=== PATIENT | male | born 2000 | race Caucasian/White ===

== ENCOUNTER 2020-10-20 18:36 | Emergency (ER) | payer OTHER, SELFPAY ==
[2020-10-20 19:05] VITALS: BP 115/70; PULSE 94; RESP 17; TEMP 36.6; O2SAT 100
--- NOTE | 2020-10-20 19:21 | ED.SKABFB ---
HPI - Skin/Abscess/Foreign Bdy General Chief complaint: Skin/Abscess/Foreign Body Stated complaint: Rash Time Seen by Provider: 10/20/20 19:21 Source: patient Mode of arrival: ambulatory Limitations: no limitations History of Present Illness HPI narrative: Marin Silver is a 19-year-old male who comes to [facility] with a rash on his legs and buttocks from being out in the [place] that occurred about a week ago. It is gradually spread even though he has been using hydrocortisone cream, Benadryl, Claritin. He is concerned particularly because there were ticks that he pulled out although none of the rash is really circular but it does seem to be angry appearing. No fever no nausea vomiting or diarrhea Related Data Home Medications Medication Instructions Recorded Confirmed loratadine [Claritin] 10 mg PO PRN PRN 10/20/20 10/20/20 Allergies Allergy/AdvReac Type Severity Reaction Status Date / Time amoxicillin Allergy Unknown Hives Verified 10/20/20 19:06 Penicillins Allergy Unknown Hives Verified 10/20/20 19:04 Review of Systems Review of Systems: CONSTITUTIONAL: Denies fever, chills, sweats. EYES: Denies visual changes, redness, discharge. ENT: Denies rhinorrhea, congestion, sore throat, otalgia. CARDIOVASCULAR: Denies chest pain, palpitations, edema. RESPIRATORY: Denies dyspnea, wheezing, cough GASTROINTESTINAL: Denies abdominal pain, nausea, vomiting, diarrhea. GENITOURINARY: Denies dysuria, hematuria, abnormal discharge SKIN: Has rash on bilateral legs thighs and buttocks and lower back NEUROLOGIC: Denies numbness, or focal weakness. PSYCHIATRIC: Denies anxiety or depression. [facility] Past Medical History Medical History No acute medical problems Family History Family History (Updated 10/20/20 @ 19:30 by Evy Gandara CNP) Father Diabetes mellitus Other Family history of arthritis Social History Social History Smoking status: Never smoker Comments At time of signature, I agree with nursing past medical, surgical, social and family history. There is no relevant family history pertinent to the presenting complaint. Exam Narrative: GENERAL: This is a well-nourished, well-developed patient, in mild distress. HEAD: normocephalic, atraumatic. EYES: Sclera clear/white. Vision is grossly intact. EARS: External ears normal. Hearing grossly intact. NOSE: External nose normal without nasal discharge, nares without redness, no rhinorrhea. THROAT: Mucous membranes moist, NECK: Neck supple, non-tender CARDIOVASCULAR: Regular rate and rhythm without murmurs, gallops, or rubs. RESPIRATORY: Clear to auscultation. Breath sounds equal bilaterally. No wheezes, rales, or rhonchi. GASTROINTESTINAL: Abdomen soft, SKIN: warm, intact with red angry appearing circular rash with mild induration on upper thighs buttocks and lower back NEURO: awake, alert, and oriented to person, place and time. There were no obvious focal neurologic abnormalities. Steady gait EXTREMITIES: Normal range of motion. BACK: Nontender without deformity Course Course Emergency Course: Patient was in the [place] a week ago and at a lot of ticks on his legs which he pulled out came out whole he has developed a rash on his legs buttocks and lower back that is very pruritic and angry appearing Prednisone 60 mg given on site Started on doxycycline and Medrol Dosepak Vital Signs Vital signs: Vital Signs Temperature 97.8 F 10/20/20 19:05 Pulse Rate 94 10/20/20 19:05 Respiratory Rate 17 10/20/20 19:05 Blood Pressure 115/70 10/20/20 19:05 Pulse Oximetry 100 10/20/20 19:05 Temperature 97.8 F 10/20/20 19:05 Pulse Rate 94 10/20/20 19:05 Respiratory Rate 17 10/20/20 19:05 Blood Pressure 115/70 10/20/20 19:05 Pulse Oximetry 100 10/20/20 19:05 MDM - Skin/Abscess/Foreign Bdy Differential Diagnosis Differ
[2020-10-20] MEDS: predniSONE 20 MG TABLET 60 MG PO (19:39)
== END 2020-10-20 19:42 | disposition home or self-care (01) ==
PROVIDERS: Emergency Provider Nurse Practitioner
DX: S30.860A Insect bite (nonvenomous) of lower back and pelvis, initial encounter (principal); W57.XXXA Bitten or stung by nonvenomous insect and other nonvenomous arthropods, initial encounter
CPT/HCPCS: 99213; G0463; J7512

== ENCOUNTER 2024-05-07 17:40 | Emergency (ER) | payer OTHER, SELFPAY ==
--- NOTE | ~2024-05-07 | XR_ITS ---
HISTORY: felt pain when bending down, now red, swollen/pain 2x days COMPARISON: 10/20/2023 TECHNIQUE: 3 views of the right knee were performed on the same FINDINGS: No acute or subacute fracture. Large anterior contusion/hematoma at the level of the patella. Medial tibiofemoral joint space narrowing is identified. Large suprapatellar joint effusion is identified. The infrapatellar joint space is clear. IMPRESSION: Large anterior soft tissue contusion/hematoma at the level of the patella with a large s uprapatellar joint effusion. No acute fracture. Reviewed, dictated and finalized at location A. IMPRESSION: Large anterior soft tissue contusion/hematoma at the level of the patella with a large suprapatellar joint effusion. No acute fracture.
--- OUTSIDE RECORDS SUMMARY | 2024-05-07 17:42 | XMS_ITS | Encounter Summary ---
Author Organization [facility] Address [address] [place] [address] Care Team Providers Care Putty Patcher Name Role Phone Referral, Self Primary Care Provider Aamir Crabtree DO Primary Care Provider [phone] Reason for Referral * Imaging (Routine) - Closed Specialty Diagnoses / Procedures Referred By Day garcia Referred To Contact Diagnoses Instability of left shoulder joint Procedures MRI ARTHRO SHOULDER LT Arline Pettit DO [address] [place] [address] Phone: tel: fax: [place] [address] Phone: tel: Referral ID Status Reason Start Date Expiration Date Visits Re quested Visits Authorized [id number] Closed 02/28/2018 08/27/2018 1 1 OROLOGIST LIAISON * Imaging (Routine) - Closed Specialty Diagnoses / Procedures Referred By Day garcia Referred To Contact Diagnoses Instability of left shoulder joint Procedures IR ARTHROGRAM SHOULDER LT Arline Pettit DO [address] [place] [address] Phone: tel: fax: [place] [address] Phone: tel: Referral ID Status Reason Start Date Expiration Date Visits Re quested Visits Authorized [id number] Closed 02/28/2018 08/27/2018 1 1 OROLOGIST LIAISON * Imaging (Routine) - Closed Specialty Diagnoses / Procedures Referred By Veronicaac t Referred To Contact Diagnoses Instability of right shoulder joint Procedures MRI ARTHRO SHOULDER RT Arline Pettit DO [address] [place] [address] Phone: tel: fax: [place] [address] Phone: tel: Referral ID Status Reason Start Date Expiration Date Visits Re quested Visits Authorized [id number] Closed 02/28/2018 08/27/2018 1 1 OROLOGIST LIAISON * Imaging (Routine) - Closed Specialty Diagnoses / Procedures Referred By Day t Referred To Contact Diagnoses Instability of right shoulder joint Procedures IR ARTHROGRAM SHOULDER RT Arline Pettit DO [address] [place] [address] Phone: tel: fax: [place] [address] Phone: tel: Referral ID Status Reason Start Date Expiration Date Visits Re quested Visits Authorized [id number] Closed 02/28/2018 08/27/2018 1 1 OROLOGIST LIAISON Encounter Details Date Type Department Care Team (Late st Contact Info) Description 03/06/2018 Community Orders [facility] EPICCARE LINK Arline Pettit DO [address] [facility] [address] [place] [address] Social History Tobacco Use Types Packs/Day Years Used Date Smoking Tobacco: Never Smokeless Tobacco: Never Sex and Gender Information Value Date Recorded Sex Assigned at Not on file Legal Sex Male 8:33 PM CDT Gender Identity Not on file Sexual Orientation Not on file documented as of this encounter Plan of Treatment Upcoming Encounters Date Type Department Care Team (Late st Contact Info) Description 08/04/2024 2:20 PM CDT Office Visit [facility] Multispecialty Care - [address] [place] [address] [address] [place] [address] Bebe Garcia MD [address] [place] [address] [address] [place] [address] documented as of this encounter Results * MRI ARTHRO SHOULDER RT (03/26/2018 1:34 PM METEOROLOGIST LIAISON) Anatomical Region Laterality Modality Shoulder Magnetic Resonan ce 03/26/2018 4:14 PM METEOROLOGIST LIAISON Impressions 03/27/2018 3:13 PM METEOROLOGIST LIAISON =====IMPRESSION:===== 1. No right shoulder labral tear identified. 2. Supraspinatus and infraspinatus [id number] tendinopathy; no convincing tear identified. 3. Unremarkable imaging appearance of the acromio clavicular joint without findings for acute or chronic injury or arthritis. 4. Please see report body for detail. Narrative 03/27/2018 3:13 PM METEOROLOGIST LIAISON EXAMINATION: MRI right shoulder arthrogram EXAM DATE/TIME: 03/26/2018 11:02 AM REASON FOR EXAM: Bilateral shoulder pain. History of right shoulder dislocation from sports injury and left shoulder separation while lifting COMPARISON: None TECHNIQUE: MR arthrogram of the right shoulder was performed. Multiplanar multisequence images of the right shoulder were acquired following fluoroscopic guided intra-articular administration of diluted gadolinium contrast. Triplanar T1-weighted fat-sat imaging as well as Aber view was obtained. FINDINGS: There is no convincing labral tear identified on this study. There is no partial or full-thickness rotator cuff tendon tear seen. There is mild to moderate supraspinatus and infraspinatus tendinopathy. Teres minor and subscapularis are unremarkable. There is no muscle edema or atrophy. The long head of the biceps tendon is normal in signal morphology without findings of tendinopathy or tenosynovitis. Tendon is located normally in the bicipital groove. No muscle edema or atrophy seen. There is a type I acromion. No lateral downsloping seen. Grossly unremarkable imaging appearance of the chronic clavicular joint. There is no joint associated edema or evidence of separation injury or degenerative change. There is a minimal if any mass effect from the distal clavicle on the supraspinatus myotendinous junction. There is no subacromial bursal effusion/bursitis. There are no Hill-Sachs fracture or bony Bankart lesion identified. There are tiny subchondral cysts posterior superior humeral head that are nonspecific. No concerning marrow signal changes identified. There is anatomic alignment. No instability identified. No significant cartilage defect/osteochondral lesion. Procedure Note Porsche Edmondson MD - 03/27/2018 EXAMINATION: MRI right shoulder arthrogram EXAM DATE/TIME: 03/26/2018 11:02 AM REASON FOR EXAM: Bilateral shoulder pain. History of right shoulder dislocation from sports injury and left shoulder separation whilelifting COMPARISON: None TECHNIQUE: MR arthrogram of the right shoulder was performed.Multiplanar multisequence images of the right shoulder were acquired following fluoroscopic guided intra-articular administration of diluted gadolinium contrast. Triplanar T1-weighted fat-sat imaging as well as Aber view was obtained. FINDINGS: There is no convincing labral tear identified on this study. There is no partial or full-thickness rotator cuff tendon tear seen.There is mild to moderate supraspinatus and infraspinatus tendinopathy. Teres minor and subscapularis are unremarkable. There is no muscle edema or atrophy. The long head of the biceps tendon is normal in signal morphologywithout findings of tendinopathy or tenosynovitis. Tendon is located normally in the bicipital groove. No muscle edema or atrophy seen. There is a type I acromion. No lateral downsloping seen. Grossly unremarkable imaging appearance of the chronic clavicular joint. There is no joint associated edema or evidence of separation injury or degenerative change. There is a minimal if any mass effect from the distal clavicle on the supraspinatus myotendinousjunction. There is no subacromial bursal effusion/bursitis. There are no Hill-Sachs fracture or bony Bankart lesion identified.There are tiny subchondral cysts posterior superior humeral head that are nonspecific. No concerning marrow signal changes identified. There is anatomic alignment. No instability identified. No significant cartilage defect/osteochondral lesion. =====IMPRESSION:===== 1. No right shoulder labral tear identified. 2. Supraspinatus and infraspinatus [id number] tendinopathy; no convincing tear identified. 3. Unremarkable imaging appearance of the acromio clavicular jointwithout findings for acute or chronic injury or arthritis. 4. Please see report body for detail. Arline Pettit DO MRI Final Result * MRI ARTHRO SHOULDER LT (03/26/2018 12:41 PM METEOROLOGIST LIAISON) Anatomical Region Laterality Modality Shoulder Magnetic Resonan ce 03/26/2018 4:14 PM METEOROLOGIST LIAISON Impressions 03/27/2018 10:34 AM METEOROLOGIST LIAISON =====IMPRESSION:===== 1. Left shoulder SLAP tear, thought to be from the posterior 11:00 though the anterior 8:00 position; there may be additional posterior labrum subtle marginal fraying. 2. Supraspinatus, infraspinatus and subscapularis mild tendinopathy without indication of the tear. 3. Mild localized subacromial mass effect on the supraspinatus myotendinous junction; no bursal effusion/bursitis. 4. Please see report body for detail. Narrative 03/27/2018 10:34 AM METEOROLOGIST LIAISON EXAMINATION: MRI left shoulder arthrogram EXAM DATE/TIME: 03/26/2018 11:03 AM REASON FOR EXAM: Bilateral shoulder pain. History of left shoulder dislocation from sports injury; left shoulder separation from lifting injury. COMPARISON: None TECHNIQUE: MR arthrogram of the left shoulder was performed. Multiplanar multisequence images through the shoulder were acquired following fluoroscopic guided intra-articular administration of diluted gadolinium contrast. Triplanar T1-weighted fat-sat imaging as well as Aber view was obtained. FINDINGS: There is a SLAP labral tear extending probably from the posterior 11:00 anteriorly to the anterior inferior 4:00 position. There may be additional posterior labral subtle marginal fraying. No convincing tear into the long of the biceps tendon identified. There is no Hill-Sachs fracture or bony pancreatic lesion. There is no partial or full-thickness rotator cuff tendon tear. There is a rotator cuff tendinopathy involving the supraspinatus, infraspinatus and subscapularis. Minimal periligamentous edema present without a subacromial bursal effusion/bursitis. There is a type I acromion. No obvious lateral downsloping. No significant acromioclavicular arthritic change. There is slight mass effect on the supraspinatus myotendinous junction from the distal clavicle. There is no muscle edema or atrophy. No findings for quadrilateral space syndrome. The articular cartilage is well-maintained. No abnormal marrow signal changes seen. Normal glenohumeral alignment. No evidence of instability on this study. Procedure Note Porsche Edmondson MD - 03/27/2018 EXAMINATION: MRI left shoulder arthrogram EXAM DATE/TIME: 03/26/2018 11:03 AM REASON FOR EXAM: Bilateral shoulder pain. History of left shoulder dislocation from sports injury; left shoulder separation from lifting injury. COMPARISON: None TECHNIQUE: MR arthrogram of the left shoulder was performed. Multiplanar multisequence images through the shoulder were acquired following fluoroscopic guided intra-articular administration of diluted gadolinium contrast. Triplanar T1-weighted fat-sat imaging as well as Aber view was obtained. FINDINGS: There is a SLAP labral tear extending probably from theposterior 11:00 anteriorly to the anterior inferior 4:00 position. There may be additional posterior labral subtle marginal fraying. No convincing tear into the long of the biceps tendon identified. There is no Hill-Sachs fracture or bony pancreatic lesion. There is no partial or full-thickness rotator cuff tendon tear. There malachi rotator cuff tendinopathy involving the supraspinatus, infraspinatus and subscapularis. Minimal periligamentous edema present without asubacromial bursal effusion/bursitis. There is a type I acromion. No obvious lateral downsloping. Nosignificant acromioclavicular arthritic change. There is slight mass effect on the supraspinatus myotendinous junction from the distal clavicle. There is no muscle edema or atrophy. No findings for quadrilateral space syndrome. The articular cartilage is well-maintained. No abnormal marrow signal changes seen. Normal glenohumeral alignment. No evidence of instability on this study. =====IMPRESSION:===== 1. Left shoulder SLAP tear, thought to be from the posterior 11:00though the anterior 8:00 position; there may be additional posterior labrumsubtle marginal fraying. 2. Supraspinatus, infraspinatus and subscapularis mild tendinopathywithout indication of the tear. 3. Mild localized subacromial mass effect on the supraspinatusmyotendinous junction; no bursal effusion/bursitis. 4. Please see report body for detail. Arline Pettit DO MRI Final Result * IR ARTHROGRAM SHOULDER RT (03/26/2018 10:58 AM METEOROLOGIST LIAISON) Anatomical Region Laterality Modality Shoulder Interventional R adiology, Radiographic Imaging 03/26/2018 4:06 PM METEOROLOGIST LIAISON Impressions 03/26/2018 4:12 PM METEOROLOGIST LIAISON =====IMPRESSION:===== 1. Technically successful right and left fluoroscopic shoulder arthrogram is. 2. Bilateral MR shoulder arthrograms to follow. Narrative 03/26/2018 4:12 PM METEOROLOGIST LIAISON Examination: Fluoroscopic arthrogram injection, right shoulder; fluoroscopic arthrogram injection, left shoulder [id number] Exam date/time: 03/26/2018 10:20 AM Reason For Exam: Bilateral shoulder pain and limited range of motion. History of prior right shoulder dislocation; left shoulder separation injury from lifting. Comparison: None Technique: Informed verbal and consent was obtained. Procedure was discussed with the patient including applicable risks, benefits and alternatives. The patient expressed understanding and wished to proceed. Bilateral shoulder arthrograms performed. The left shoulder was targeted initially followed by the right shoulder. A timeout was performed. Patient was placed supine on fluoroscopy table with the hand in supination. The anterior shoulder joint was localized with fluoroscopy and the skin entry site marked, prepped and draped in usual sterile fashion. 1% lidocaine was used for local anesthesia. A 22-gauge spinal needle was advanced under fluoroscopy guidance into the shoulder joint. Articular needle position was confirmed with contrast injection. 12 mL of a 20 mL mixture of 10 mL saline, 5 mL lidocaine, 5 mL iodinated contrast and 0.2 mL gadolinium was then injected into the joint. Needle was removed. This is performed initially in the left shoulder followed by the right shoulder. The needle was then removed. The patient tolerated the procedure well with no immediate complication. Findings: Contrast is seen to diffuse through both shoulder joints adequately. Total fluoroscopy time right shoulder 0.3 minutes with one image saved Total fluoroscopy time left shoulder 0.3 minutes with one image saved. Procedure Note Porsche Edmondson MD - 03/26/2018 Examination: Fluoroscopic arthrogram injection, right shoulder; fluoroscopic arthrogram injection, left shoulder [id number] Exam date/time: 03/26/2018 10:20 AM Reason For Exam: Bilateral shoulder pain and limited range of motion. History of prior right shoulder dislocation; left shoulder separation injury from lifting. Comparison: None Technique: Informed verbal and consent was obtained. Procedure was discussed with the patient including applicable risks, benefits and alternatives. The patient expressed understanding and wished to proceed. Bilateral shoulder arthrograms performed. The left shoulder was targeted initially followed by the right shoulder. A timeout was performed. Patient was placed supine on fluoroscopy table with the hand in supination. The anterior shoulder joint was localizedwith fluoroscopy and the skin entry site marked, prepped and draped in usual sterile fashion. 1% lidocaine was used for local anesthesia. A 22-gauge spinal needle was advanced under fluoroscopy guidance into the shoulder joint. Articular needle position was confirmed with contrast injection.12 mL of a 20 mL mixture of 10 mL saline, 5 mL lidocaine, 5 mL iodinated contrast and 0.2 mL gadolinium was then injected into the joint. Needlewas removed. This is performed initially in the left shoulder followed bythe right shoulder. The needle was then removed. The patient tolerated the procedure wellwith no immediate complication. Findings: Contrast is seen to diffuse through both shoulder joints adequately. Total fluoroscopy time right shoulder 0.3 minutes with one image saved Total fluoroscopy time left shoulder 0.3 minutes with one image saved. =====IMPRESSION:===== 1. Technically successful right and left fluoroscopic shoulderarthrogram is. 2. Bilateral MR shoulder arthrograms to follow. Arline Pettit DO INTERVENTIONAL RADIOLOGY Fin al Result * IR ARTHROGRAM SHOULDER LT (03/26/2018 10:54 AM METEOROLOGIST LIAISON) Anatomical Region Laterality Modality Shoulder Interventional R adiology, Radiographic Imaging 03/26/2018 4:06 PM METEOROLOGIST LIAISON Impressions 03/26/2018 4:12 PM METEOROLOGIST LIAISON =====IMPRESSION:===== 1. Technically successful right and left fluoroscopic shoulder arthrogram is. 2. Bilateral MR shoulder arthrograms to follow. Narrative 03/26/2018 4:12 PM METEOROLOGIST LIAISON Examination: Fluoroscopic arthrogram injection, right shoulder; fluoroscopic arthrogram injection, left shoulder [id number] Exam date/time: 03/26/2018 10:20 AM Reason For Exam: Bilateral shoulder pain and limited range of motion. History of prior right shoulder dislocation; left shoulder separation injury from lifting. Comparison: None Technique: Informed verbal and consent was obtained. Procedure was discussed with the patient including applicable risks, benefits and alternatives. The patient expressed understanding and wished to proceed. Bilateral shoulder arthrograms performed. The left shoulder was targeted initially followed by the right shoulder. A timeout was performed. Patient was placed supine on fluoroscopy table with the hand in supination. The anterior shoulder joint was localized with fluoroscopy and the skin entry site marked, prepped and draped in usual sterile fashion. 1% lidocaine was used for local anesthesia. A 22-gauge spinal needle was advanced under fluoroscopy guidance into the shoulder joint. Articular needle position was confirmed with contrast injection. 12 mL of a 20 mL mixture of 10 mL saline, 5 mL lidocaine, 5 mL iodinated contrast and 0.2 mL gadolinium was then injected into the joint. Needle was removed. This is performed initially in the left shoulder followed by the right shoulder. The needle was then removed. The patient tolerated the procedure well with no immediate complication. Findings: Contrast is seen to diffuse through both shoulder joints adequately. Total fluoroscopy time right shoulder 0.3 minutes with one image saved Total fluoroscopy time left shoulder 0.3 minutes with one image saved. Procedure Note Porsche Edmondson MD - 03/26/2018 Examination: Fluoroscopic arthrogram injection, right shoulder; fluoroscopic arthrogram injection, left shoulder [id number] Exam date/time: 03/26/2018 10:20 AM Reason For Exam: Bilateral shoulder pain and limited range of motion. History of prior right shoulder dislocation; left shoulder separation injury from lifting. Comparison: None Technique: Informed verbal and consent was obtained. Procedure was discussed with the patient including applicable risks, benefits and alternatives. The patient expressed understanding and wished to proceed. Bilateral shoulder arthrograms performed. The left shoulder was targeted initially followed by the right shoulder. A timeout was performed. Patient was placed supine on fluoroscopy table with the hand in supination. The anterior shoulder joint was localizedwith fluoroscopy and the skin entry site marked, prepped and draped in usual sterile fashion. 1% lidocaine was used for local anesthesia. A 22-gauge spinal needle was advanced under fluoroscopy guidance into the shoulder joint. Articular needle position was confirmed with contrast injection.12 mL of a 20 mL mixture of 10 mL saline, 5 mL lidocaine, 5 mL iodinated contrast and 0.2 mL gadolinium was then injected into the joint. Needlewas removed. This is performed initially in the left shoulder followed bythe right shoulder. The needle was then removed. The patient tolerated the procedure wellwith no immediate complication. Findings: Contrast is seen to diffuse through both shoulder joints adequately. Total fluoroscopy time right shoulder 0.3 minutes with one image saved Total fluoroscopy time left shoulder 0.3 minutes with one image saved. =====IMPRESSION:===== 1. Technically successful right and left fluoroscopic shoulderarthrogram is. 2. Bilateral MR shoulder arthrograms to follow. Arline Pettit DO INTERVENTIONAL RADIOLOGY Fin al Result documented in this encounter Visit Diagnoses Diagnosis Instability of right shoulder joint- Primary Other joint derangement, not elsewhere classified, shoulder region Instability of left shoulder joint Other joint derangement, not elsewhere classified, shoulder region Instability of left shoulder joint Other joint derangement, not elsewhere classified, shoulder region Instability of right shoulder joint Other joint derangement, not elsewhere classified, shoulder region documented in this encounter Care Teams Putty Patcher Relationship Specialty Start Date End Date Referral, Self PCP - General UNKNOWN PHYSICIAN SPECIALTY 03/05/18 Aamir Rajput DO [address] [address] PCP - General FAMILY PRACTICE 04/09/18 documented as of this encounter
--- OUTSIDE RECORDS SUMMARY | 2024-05-07 17:42 | XMS_ITS | Clinical Summary ---
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 shoulder, subsequent encounter 04/09/2018 Shoulder instability, left 04/09/2018 Heart murmur 03/05/2018 Instability of shoulder joint, right 03/05/2018 Social History Tobacco Use Types Packs/Day Years Used Date Smoking Tobacco: Never Smokeless Tobacco: Never Sex and Gender Information Value Date Recorded Sex Assigned at Not on file Legal Sex Male 8:33 PM CDT Gender Identity Not on file Sexual Orientation Not on file Last Filed Vital Signs Vital Sign Reading Time Taken Comments Blood Pressure 111/72 06/04/2018 4:15 PM CDT Pulse 77 06/04/2018 4:15 PM CDT Temperature - - Respiratory Rate - - Oxygen Saturation - - Inhaled Oxygen Concentration - - Weight 74.4 kg (164 lb) 06/04/2018 4:15 PM CDT Height 172.7 cm (5' 8 ) 06/04/2018 4:15 PM CDT Body Mass Index 24.94 06/04/2018 4:15 PM CDT Plan of Treatment Upcoming Encounters Date Type Department Care Team (Late st Contact Info) Description 08/04/2024 2:20 PM CDT Office Visit [facility] Multispecialty Care - [address] [place] [address] Bebe Garcia MD [address] [facility] [address] [place] [address] Health Maintenance Due Date Last Done Comments Annual Physical 11/10/2002 HPV Vaccines (1 - Male 3-dos e series) 11/10/2014 Hepatitis C 11/10/2017 DTaP, Tdap and Td Vaccines ( 1 - Tdap) 11/10/2018 Hepatitis B Vaccines (1 of 3 - 19+ 3-dose series) 11/10/2018 COVID-19 Vaccine (1 - 2023-2 5 season) 2023 Meningococcal B Vaccine Aged Out No l onger eligible based on patient's age to complete this topic Meningococcal Vaccine Aged Out No jacquie philip eligible based on patient's age to complete this topic Pneumococcal Vaccine: Pediat rics (0 to 5 Years) and At-Risk Patients (6 to 64 Years) Aged Out No longer eligible b ased on patient's age to complete this topic RSV Immunizations Under 20 Months Aged Out No longer eligible based on patient's age to complete this topic Insurance Care Teams Conditioner Tumbler Operator Relationship Specialty Start Date End Date Aamir Rajput DO [address] [phone] (Work) PCP - General FAMILY PRACTICE 04/09/18
[2024-05-07 17:54] VITALS: BP 127/64; PULSE 82; RESP 16; TEMP 36.6; O2SAT 100
--- NOTE | 2024-05-07 17:57 | ED_ITS ---
HPI - Extremity Injury (Lower) General Chief Complaint: Extremity Injury, Lower Stated Complaint: rt knee pain Time Seen by Provider: 05/07/24 17:57 Source: patient Mode of arrival: ambulatory Limitations: no limitations History of Present Illness HPI Narrative: 23-year-old male presents today with complaint of pain, swelling and redness to right knee. Patient states 2 days ago he bent down at work and felt pain to right knee. unsure if when bending down onto the ground he landed on something or the bending cause injury to knee. Noticed swelling to knee last night. Today increase in swelling with pain and redness. Walking with Limp due to pain. all systems reviewed and negative except as noted above. Related Data Home Medications ?Medication ?Instructions ?Recorded ?Confirmed ?Last Taken ?Type loratadine 10 mg tablet (Claritin) 10 mg PO PRN PRN Allergy Symptoms 10/20/20 10/20/20 Unknown History Allergies Allergy/AdvReac Type Severity Reaction Status Date / Time amoxicillin Allergy Unknown Hives Verified 05/07/24 17:57 Penicillins Allergy Unknown Hives Verified 05/07/24 17:57 Review of Systems Review of Systems: CONSTITUTIONAL: Denies fever, chills, or sweats. EYES: Denies visual changes, redness, or discharge. ENT: Denies rhinorrhea, congestion, sore throat, or otalgia. CARDIOVASCULAR: Denies chest pain, palpitations, or edema. RESPIRATORY: Denies cough or dyspnea. GASTROINTESTINAL: Denies abdominal pain, nausea, vomiting, or diarrhea. GENITOURINARY: Denies dysuria or hematuria. SKIN: Denies rash or itching. MUSCULOSKELETAL: Denies back pain or myalgia. Reports pain, swelling and redness to right knee NEUROLOGIC: Denies headache, numbness, or weakness. PSYCHIATRIC: Denies anxiety or depression. All other systems reviewed are negative, except as documented in HPI. [facility] Past Medical History Medical History No acute medical problems Family History Family History (Updated 10/20/20 @ 19:30 by Evy Gandara, HYBRID CAR MECHANIC) Father Diabetes mellitus Other Family history of arthritis Social History Social History Smoking status: Never smoker Comments At time of signature, agree with nursing past medical, surgical, social and family history. There is no relevant family history pertinent to the presenting complaint. Exam Narrative: GENERAL: This is a well-nourished, well-developed patient, in no apparent distress. HEAD: normocephalic, atraumatic. EYES: PERRL. Sclera clear/white. Vision is grossly intact. EARS: External ears normal NOSE: External nose normal NECK: Neck supple, non-tender without lymphadenopathy, masses or thyromegaly. CARDIOVASCULAR: Regular rate and rhythm without murmurs, gallops, or rubs. RESPIRATORY: Clear to auscultation. Breath sounds equal bilaterally. No wheezes, rales, or rhonchi. SKIN: warm, Dry, intact with no suspicious lesions or rash, good texture and turgor. NEURO: awake, alert, and oriented to person, place and time. There were no obvious focal neurologic abnormalities. EXTREMITIES: swelling erythema and warmth to anterior aspect of right knee with tenderness on palpation. Course Course Level of Care: Express Care Visit Vital Signs Vital signs: Vital Signs Temperature 36.6 C 05/07/24 17:54 Pulse Rate 82 05/07/24 17:54 Respiratory Rate 16 05/07/24 17:54 Blood Pressure 127/64 05/07/24 17:54 Pulse Oximetry 100 05/07/24 17:54 Oxygen Delivery Room Air 05/07/24 17:54 Temperature 36.6 C 05/07/24 17:54 Pulse Rate 82 05/07/24 17:54 Respiratory Rate 16 05/07/24 17:54 Blood Pressure 127/64 05/07/24 17:54 Pulse Oximetry 100 05/07/24 17:54 Oxygen Delivery Room Air 05/07/24 17:54 Reviewed MDM - Extremity Injury (Lower) MDM Narrative Medical decision making narrative: x-ray of right knee shows large joint effusion. Will refer to orthopedics for further evaluation. Will prescribe antibiotic as precaution due to erythema and warmth. Patient is well-appearing, nontoxic. Please be advised this is a medical document. It is intended for [id number] communication. It is written in medical language and may contain unfamiliar abbreviations or verbiage. Medical documents are intended to carry relevant information, facts as evident, and the clinical opinion of the practitioner at the time of the encounter. This report may have been done utilizing a voice recognition system. Attempts have been made to correct errors. However, there may be uncorrected grammatical, spelling, and recognition errors present. The file time of this note does not necessarily represent the time of service. Imaging Data My impression: agree with radiologist Radiologist's impression: TECHNIQUE: 3 views of the right knee were performed on the same FINDINGS: No acute or subacute fracture. Large anterior contusion/hematoma at the level of the patella. Medial tibiofemoral joint space narrowing is identified. Large suprapatellar joint effusion is identified. The infrapatellar joint space is clear. IMPRESSION: Large anterior soft tissue contusion/hematoma at the level of the patella with a large suprapatellar joint effusion. No acute fracture. Discharge Plan Discharge Clinical Impression: Effusion of knee joint right, Cellulitis of knee, right Patient Disposition: Home, Self-Care Condition: Stable Instructions: Antibiotic Form, Cellulitis (ED), Swollen Knee Joint (ED) Additional Instructions: the x-ray of your right knee shows a large joint effusion. Take antibiotic as precaution. Erythema and warmth concerning for cellulitis But also could be due to joint effusion. Take ibuprofen every 6-8 hours as needed for pain. Wear Brian wrap to compress swelling. Elevate when at rest, apply ice as needed for pain. Avoid activities that increase pain to right knee. Follow-up with software support specialist at next available appointment. Patient Language: Lao Prescriptions: New cephalexin 500 mg capsule 500 mg PO QID 7 Days Qty: 28 0RF No Action loratadine [Claritin] 10 mg tablet 10 mg PO PRN PRN (Reason: Allergy Symptoms) Follow-up/Referrals: PHYSICIAN,LICENSED REACTOR OPERATOR [Primary Care Provider] - Pedro Ng MD [Physician] - ( call and schedule follow-up appointment with software support specialist for further evaluation) Stand Alone Forms: Work/School Release IP Time of Disposition: 19:20
== END 2024-05-07 19:26 | disposition home or self-care (01) ==
PROVIDERS: Emergency Provider Nurse Practitioner Family
DX: M25.461 Effusion, right knee (principal); L03.115 Cellulitis of right lower limb
CPT/HCPCS: 73562; 99213; G0463